=== PATIENT | female | born 1930 | race Caucasian/White ===

== ENCOUNTER 2018-11-09 08:17 | Emergency (ER) | payer MEDICARE, OTHER ==
[~2018-11-09] VITALS: Ht 315 cm; Wt 69.9 kg
[~2018-11-09 08:17] MED LIST: ALTACE1.25 MG; AMBIEN5 MG PO; Aspirin PO; PEPCID20 MG PO; PRAVACHOL20 MG PO; RAMIPRIL5 MG PO; Ramipril PO; TRANDATE100 MG PO; ULTRAM 50MG50 MG PO; VALIUM2 MG
== END 2018-11-09 09:01 | disposition home or self-care (01) ==
LOC: ER 08:17
DX: I10 Essential (primary) hypertension (principal); Z85.43 Personal history of malignant neoplasm of ovary
CPT/HCPCS: 99282